=== PATIENT | male | born 1970 | race Caucasian/White ===

== ENCOUNTER → 2020-08-17 11:00 | Outpatient (BNVA) | payer OTHER, SELFPAY | PROVIDERS: Visit Provider Nurse Practitioner Family | DX: Z20.828 Contact with and (suspected) exposure to other viral communicable diseases (principal); J06.9 Acute upper respiratory infection, unspecified | CPT/HCPCS: 87635 ==

== ENCOUNTER 2021-05-06 03:25 | Emergency (ER) | payer OTHER, SELFPAY ==
[2021-05-06 03:36] VITALS: BP 161/117; PULSE 102; RESP 18; TEMP 37.2; O2SAT 95
[2021-05-06 04:01] VITALS: BP 161/117; PULSE 98; RESP 16; O2SAT 97
--- NOTE | 2021-05-06 04:16 | XRR_ITS ---
PROCEDURE INFORMATION: Exam: XR Left Foot Exam date and time: 05/06/2021 4:16 AM Age: 50 years old Clinical indication: Injury or trauma; Work related; Blunt trauma; Patient HX: Fall of approx. 4-5 feet from ladder at work. Landed feet first then onto buttocks. C/O left foot and coccygeal pain. ; Additional info: Fall injury TECHNIQUE: Imaging protocol: XR Left foot. Views: 3 or more views. COMPARISON: No relevant prior studies available. FINDINGS: Bones/joints: There is a heel spur. Lucency through the proximal aspect of the 4th metatarsal suspicious for fracture. Soft tissues: Normal. XR/XR foot LT min 3V* [id number] IMPRESSION: Lucency through the proximal aspect of the 4th metatarsal suspicious for fracture.
--- NOTE | 2021-05-06 04:16 | XRR_ITS ---
PROCEDURE INFORMATION: Exam: XR Sacrum and Coccyx, 2 or More Views Exam date and time: 05/06/2021 4:16 AM Age: 50 years old Clinical indication: Injury or trauma; Work related; Blunt trauma (contusions or hematomas); Patient HX: Fall of approx. 4-5 feet from ladder at work. Landed feet first then onto buttocks. C/O left foot and coccygeal pain. ; Additional info: Fall injury TECHNIQUE: Imaging protocol: XR of the sacrum and coccyx, 2 or more views. COMPARISON: No relevant prior studies available. FINDINGS: Bones/joints: Normal. No acute fracture. Soft tissues: Normal. XR/XR sacrum coccyx min 2V [id number] IMPRESSION: No acute findings.
--- NOTE | 2021-05-06 04:32 | W.ED.EXTPRO ---
HPI - Extremity Problem General: Chief complaint: Extremity Injury, Lower Stated complaint: fall/left foot injury Time Seen by Provider: 05/06/21 03:56 History of Present Illness: HPI Narrative: 50-year-old male who fell at work. He was on a ladder,. Notes a height of about 4 to 5 feet. He fell on his feet, then landed on his bum. He complains mainly of pain to the left second toe. He also has some tailbone pain. No numbness, no tingling, no weakness. MD Complaint: extremity pain and extremity swelling Onset (ago): hour(s) Pain Consistency: constant Location: left, toe and other Radiation: none Relieving factors: nothing Exacerbating factors: range of motion and weight bearing Associated symptoms: Deny chest pain, fever(s) or short of breath Review of Systems Const: Denies: fever(s) Card: Denies: chest pain Resp: Denies: dyspnea GI: Denies: abdominal pain, nausea or vomiting Musc: Reports: extremity pain Physical Exam Const: COMMON NORMALS: no acute distress, patient oriented x3 and alert Neck/C-Spine: COMMON NORMALS: full ROM Chest: COMMONS NORMALS: normal inspection of the chest Resp: COMMON NORMALS: normal respiratory effort and No use of accessory muscles GI: COMMON NORMALS: Normal to inspection, nondistended, normoactive bowel sounds present, Soft to palpation and non-tender PALPATION: Yes Soft to palpation : COMMON NORMALS: Yes no CVA tenderness BLADDER/KIDNEY EXAM: Yes no CVA tenderness Back/Pelvis: COMMON NORMALS: no CVA tenderness and no thoracic nor lumbar tenderness OTHER: Some tailbone pain with sitting. No radicular pain on straight leg raise testing. Extremity: NARRATIVE EXTREMITY EXAM: Tenderness and swelling to the PIP of the 2nd left toe. Abrasion on the surface. Bleeding controlled. Neuro: COMMON NORMALS: patient oriented x3 SENSORIUM/ORIENTATION: Yes alert Course Vital Signs: Vital signs: Vital Signs Temperature 98.9 F 05/06/21 03:36 Pulse Rate 98 05/06/21 04:01 Respiratory Rate 16 05/06/21 04:01 Blood Pressure 161/117 05/06/21 04:01 Pulse Oximetry 97 05/06/21 04:01 MDM - Extremity (Nontraumatic) MDM Narrative: Medical decision making narrative: X-rays of the toes/foot, and sacrum are negative for fracture. There is some soft tissue swelling. Discharge Plan Discharge Patient Disposition: Home Clinical Impression: Abrasion, toe w/o infection Contusion of second toe Qualifiers: Encounter type: initial encounter Laterality: left Qualified Code(s): S90.122A - Contusion of left lesser toe(s) without damage to nail, initial encounter Contusion of sacrum Qualifiers: Encounter type: initial encounter Qualified Code(s): S30.0XXA - Contusion of lower back and pelvis, initial encounter Condition: Stable Prescriptions: New ketorolac 10 mg tablet 10 mg PO TID PRN (Reason: pain) Qty: 10 RF: 0 Discharge Orders: Discharge ED (Routine); Ordered 05/06/21 Ordered By: Faisal Quick Discharge Diet: Advance as tolerated Discharge Activity: Limit activity as instructed Patient Instructions: Foot Contusion (ED), Back Pain (ED) Activity Restrictions/Additional Instructions: Wash foot with soap and running water. Do not soak. Bandage abrasion. Return for worsening pain despite treatment, any other concerns. 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
[2021-05-06 05:37] VITALS: BP 150/90; PULSE 94; RESP 14; O2SAT 97
== END 2021-05-06 05:35 | disposition home or self-care (01) ==
PROVIDERS: Emergency Provider Emergency Medicine
DX: S90.122A Contusion of left lesser toe(s) without damage to nail, initial encounter (principal); S30.0XXA Contusion of lower back and pelvis, initial encounter; W11.XXXA Fall on and from ladder, initial encounter
CPT/HCPCS: 72220; 73630; 99282